=== PATIENT | female | born 1950 | race Caucasian/White ===

== ENCOUNTER 2021-05-11 05:29 | Day surgery (SDC) | payer MEDICARE, BC ==
[2021-05-03 17:05] LABS: BASOPHILS % (AUTO) 0.7 % (0-1); EOSINOPHILS # (AUTO) 0.2 X10'3 (0-0.9); EOSINOPHILS % (AUTO) 2.7 % (0-6); LYMPHOCYTES # (AUTO) 2.9 X10'3 (1.1-4.8); LYMPHOCYTES % (AUTO) 41.2 % (21-51); MEAN CORPUSCULAR HEMOGLOBIN 32.4 PG (27.0-31.0); MEAN CORPUSCULAR VOLUME 95.4 FL (78-98); MONOCYTES # (AUTO) 0.6 X10'3 (0-0.9); MONOCYTES % (AUTO) 8.1 % (2-12); NEUTROPHILS # (AUTO) 3.3 X10'3 (1.8-7.7); NEUTROPHILS % (AUTO) 47.3 % (42-75); PRE OP PLATELET COUNT 224 X10'3 (140-440); RED BLOOD COUNT 4.92 X10'6 (4.20-5.60); RED CELL DISTRIBUTION WIDTH 13.4 % (11.5-14.5)
[2021-05-03 17:40] LABS: ALBUMIN 3.8 G/DL (3.4-5.0); ALKALINE PHOSPHATASE 87 IU/L (46-116); BLOOD UREA NITROGEN 19 MG/DL (7-18); BUN/CREATININE RATIO 24.7 (6.6-38.0); CALCIUM 9.3 MG/DL (8.5-10.1); CHLORIDE 104 MMOL/L (99-107); CREATININE 0.77 MG/DL (0.40-0.90); PRE OP ALT 25 U/L (30-65); PRE OP ANION GAP 7 (8-16); PRE OP AST 26 U/L (10-37); PRE OP BILIRUB, TOTAL 0.2 MG/DL (0.0-1.0); PRE OP GLUCOSE 92 MG/DL (70-104); PRE OP POTASSIUM 4.4 MMOL/L (3.4-5.1); PRE OP SODIUM 140 MMOL/L (135-145); TOTAL CARBON DIOXIDE 29.4 MMOL/L (24-32); TOTAL PROTEIN 7.8 G/DL (6.4-8.2); eGFR 74 ML/MIN
[2021-05-11] VITALS (18 sets, daily range): BP systolic 80–119; BP diastolic 48–71
[~2021-05-11] VITALS: Ht 165.1 cm; Wt 86.8 kg
[~2021-05-11 05:29] MED LIST: AMBEREN; CELE-85 PO; CITA20TA28 PO; GABA-530 PO; GABA300C PO; HYDR-3972 PO; LANS30CA56 PO; LEVO75TA7 PO; MELA5TAB12 PO; MORP-92 PO; MULT-1085 PO; ringers solution, lacted 1,000 ML IV SCH
[2021-05-11] MEDS ORDERED: tranexamic acid inj. 1,000 MG in normal saline 100 ML IV ONE (05:30)
[2021-05-11] MEDS ORDERED: albuterol 2.5 MG/3 ML nebule NEB ONE (05:30)
[2021-05-11] MEDS ORDERED: vancomycin 1,500 MG in NS 300ml IV soln IV ONE (05:30)
[2021-05-11] MEDS ORDERED: clindamycin-Cleocin 900mg/D5W 50 ML IV ONE (05:30)
[2021-05-11] MEDS: famotidine 20mg tablet PO ONE ×2 (06:14→06:17)
[2021-05-11] MEDS ORDERED: cloNIDine hcl/PF 100mcg/ml inj ONE (06:46)
[2021-05-11] MEDS ORDERED: ketorolac trometh. 30mg/ml inj. ONE (06:46)
[2021-05-11] MEDS ORDERED: ROPIVAcaine 0.5% (5mg/ml) 30ml vial ONE ×2 (06:46→08:06)
[2021-05-11] MEDS ORDERED: tetracaine 1% (10mg/ml) pres. free inj. ONE (07:11)
[2021-05-11] MEDS ORDERED: MIDAZolam 1mg/ml 10ml vial ONE (07:15)
[2021-05-11] MEDS ORDERED: morphine /PF 1mg/ml 10ml inj. ONE (07:16)
[2021-05-11] MEDS ORDERED: fentaNYL/PF 50MCG/1 ML 2ML syringe ONE (07:16)
[2021-05-11] MEDS ORDERED: BUPIVAcaine/PF 7.5mg/ml (0.75%) 10ml vial ONE (07:20)
[2021-05-11] MEDS ORDERED: ePHEDrine 50MG/ML INJ. ONE (07:43)
[2021-05-11] MEDS ORDERED: dexamethasone sod phosphate 4mg/ml inj. ONE (08:07)
[2021-05-11] MEDS ORDERED: morphine 2 MG/ML inj. syringe IV PRN (08:15)
[2021-05-11] MEDS ORDERED: ringers solution, lacted 1,000 ML IV SCH (08:15)
[2021-05-11] MEDS ORDERED: fentaNYL/PF 50MCG/1 ML 2ML syringe IV PRN ×2 (08:15)
[2021-05-11] MEDS ORDERED: morphine 4 MG/ML inj SYRINge IV PRN (08:15)
[2021-05-11] MEDS ORDERED: hydrALAZINE 20mg/ml inj. IV PRN (08:15)
[2021-05-11] MEDS ORDERED: labetalol 20mg/4ml (5mg/ml) syringe IV PRN (08:15)
[2021-05-11] MEDS ORDERED: diphenhydrAMINE 50 mg/ml inj IV PRN (08:15)
[2021-05-11] MEDS ORDERED: ondansetron/PF 4mg/2ml inj IV PRN ×3 (08:15→10:15)
--- NOTE | 2021-05-11 10:06 | NUR ---
Received from OR via , accompanied by Anesthesiologist DR JESSICA and report given by Anesthesiolgist. AWAKENS TO VOICE. VITALS STABLE. DRESSING DI. ALIA PAIN. SENSATION JUST ABNOVE THE HIPS. HATHAWAY WITH CLEAR URINE.
[2021-05-11] MEDS ORDERED: diphenhydrAMINE 25mg capsule PO PRN ×2 (10:15)
[2021-05-11] MEDS ORDERED: oxyCODONE IR 5mg (immed. release) tablet PO PRN ×2 (10:15)
[2021-05-11] MEDS ORDERED: magnesium hydroxide 30ml (MOM) UD suspension PO PRN (10:15)
[2021-05-11] MEDS ORDERED: bisacodyl 10mg suppository rectal RC PRN (10:15)
[2021-05-11] MEDS ORDERED: acetaminophen 325mg tablet PO PRN (10:15)
[2021-05-11] MEDS ORDERED: Melatonin 3mg tablet PO PRN (10:25)
--- NOTE | 2021-05-11 11:12 | NUR ---
received report from kathie street in recovery
--- NOTE | 2021-05-11 11:16 | NUR ---
Report called to receiving nurse. Transferred via BED Belongings . Special Issues communicated to receiving nurse. AWAKE AND ORIENTED. VITALS STABLE. DRESSING DI. ALIA PAIN. TO ORTHO RM [id number] AT THIS TIME.
[2021-05-11] MEDS: clindamycin 600mg/D5W 50ml 50 ML IV SCH ×2 (13:52→20:45)
[2021-05-11] MEDS: HYDROmorphone 1 mg/ml syringe IV PRN (16:43)
--- NOTE | 2021-05-11 16:47 | NUR ---
earlier today pt brought in all of home medications for the intent of pharmacy to place their own label to distribute it to her, pharmacy called me back about and hour later letting me know that they are unable to complete the patient's request due to home medications not flagging things like 'reduced kidney function' therefore being a safety issue this safety issue has been explained to the patient and was told that her medications are being stored in pharmacy currently pt told me that she "will not take any of the hospital's medication" because she has "brought her own medication into the hospital" and that she had "already paid for her medication" and "refuses to pay for any medication that the hospital distributes to her" i asked her if she had spoke w/the doc about this issue w/her medication and patient answered the question with saying again that "she had already paid for her medication" and "refuses to take any pills that the hospital is going to distribute"
[2021-05-11] MEDS: aspirin 81mg tablet.DR PO SCH (17:06)
--- NOTE | 2021-05-11 18:18 | NUR ---
medications returned to daughter at bedside, daughter states " I will take the medication home with me and will not give her any of the medicines" there is concern since pt her home po dialudid at bedside at this time, pharmacy advised. pharmacy will closely monitor. pt states that she will decline all oral medications offered as she believes she will be charged for each medication Addendum: 05/11/21 at 1842 by Lady Arzola RN armature varnisher attempted to remedy situation by explaining to daughter and patient about her medicare and supplemental insurance that the patient has, after explanation, patient refuses to take all oral medications
--- NOTE | 2021-05-11 18:39 | NUR ---
attempted to notify the surgeon about patient declining all oral medications that have been described, unable to get through to surgeon to leave a message on surgeon cell phone
--- NOTE | 2021-05-11 18:43 | NUR ---
gave report to kathie davila
[2021-05-11] MEDS: potassium Cl 20mEq in NS 1,000 ML IV SCH ×2 (18:49→23:35)
--- NOTE | 2021-05-11 19:00 | NUR ---
daughter went home. had bag in her hand - unsure what contents were. no visible medications at bedside or in drawers. pt verbalized she would only take medications that were IV, no PO meds. pain controlled. VSS. will continue to assess.
[2021-05-11] MEDS ORDERED: vancomycin/NS 1 GM ADD-VANTAGE 250 ML IV SCH (20:00)
--- NOTE | 2021-05-11 20:30 | NUR ---
walked pt to doorway and back. full gait, tolerated well. "I'm doing great. I wonder if it's the surgery or the block?"
[2021-05-11] MEDS: gabapentin 100mg capsule PO SCH (21:00)
[2021-05-11] MEDS ORDERED: sennosides 8.6mg tablet PO SCH (21:00)
[2021-05-11] MEDS ORDERED: gabapentin 300mg capsule PO SCH (21:00)
--- NOTE | 2021-05-11 21:50 | NUR ---
offered PM meds of gabapentin, senekot etc. but pt declined oral medications. explained benefits, pt continues to decline. no pain, resting w/o distress. placed on oxygen earlier for sats 90% on RA. pt compliant with oxygen and continuous pulse ox. noted low/normal heart rate and blood pressure
[2021-05-12] MEDS: HYDROmorphone 1 mg/ml syringe IV PRN ×3 (01:49→09:29)
[2021-05-12 02:11] VITALS: BP 111/54
--- NOTE | 2021-05-12 04:00 | NUR ---
pt c/o pain - continues to refuse PO meds. IV dilaudid not due until 0545. will give when able. ice, elevation, rest, gatched bed supplied. pain behind knee "where it was before my surgery".
[2021-05-12 06:00] VITALS: BP 110/63
[2021-05-12] MEDS ORDERED: levoTHYROXINE 75mcg tablet PO SCH (07:00)
--- NOTE | 2021-05-12 07:20 | NUR ---
Pt continued to refuse all po meds even when informed of Hospital routine. Pt concerned of individuals charges and that she brought in meds from home but was told not to keep them at bedside. She said she will wait to take her meds when she goes home. Will inform MD when he makes rounds.
[2021-05-12] MEDS: aspirin 81mg tablet.DR PO SCH (07:30)
[2021-05-12] MEDS ORDERED: pantoprazole 40mg Tablet.DR PO SCH (07:30)
[2021-05-12] MEDS ORDERED: celeCOXIB 100mg capsule PO SCH (08:00)
[2021-05-12] MEDS ORDERED: citalopram 20mg tablet PO SCH (08:00)
[2021-05-12] MEDS: gabapentin 100mg capsule PO SCH (08:00)
[2021-05-12 10:00] VITALS: BP 133/59
[2021-05-12 10:04] LABS: BASOPHILS % (AUTO) 0.2 % (0-1); EOSINOPHILS % (AUTO) 0.4 % (0-6); HEMATOCRIT 39.9 % (35.0-45.0); HEMOGLOBIN 13.3 g/dl (12.0-16.0); LYMPHOCYTES # (AUTO) 1.5 X10'3 (1.1-4.8); LYMPHOCYTES % (AUTO) 12.7 % (21-51); MEAN CORPUSCULAR HGB CONC 33.3 g/dL (33.0-36.5); MEAN CORPUSCULAR VOLUME 95.9 FL (78-98); MEAN PLATELET VOLUME 7.3 FL (7.4-10.4); MONOCYTES # (AUTO) 1.4 X10'3 (0-0.9); MONOCYTES % (AUTO) 11.9 % (2-12); NEUTROPHILS # (AUTO) 8.7 X10'3 (1.8-7.7); NEUTROPHILS % (AUTO) 74.8 % (42-75); PLATELET COUNT 183 X10'3 (140-440); RED BLOOD COUNT 4.16 X10'6 (4.20-5.60); RED CELL DISTRIBUTION WIDTH 13.9 % (11.5-14.5); WHITE BLOOD COUNT 11.6 X10'3 (4.5-11.0)
[2021-05-12 10:15] LABS: ALANINE AMINOTRANSFERASE 25 U/L (12-78); ALBUMIN 3.3 G/DL (3.4-5.0); ALBUMIN/GLOBULIN RATIO 0.9 (1.1-1.5); ALKALINE PHOSPHATASE 61 IU/L (46-116); ANION GAP 6 (8-16); ASPARTATE AMINO TRANSFERASE 35 U/L (10-37); BILIRUBIN,TOTAL 0.5 MG/DL (0.1-1.0); BLOOD UREA NITROGEN 22 MG/DL (7-18); BUN/CREATININE RATIO 22.7 (6.6-38.0); CALCIUM 8.8 MG/DL (8.5-10.1); CHLORIDE 105 MMOL/L (99-107); CREATININE 0.97 MG/DL (0.40-0.90); GLUCOSE 86 MG/DL (70-104); POTASSIUM 4.8 MMOL/L (3.5-5.1); SODIUM 139 MMOL/L (135-145); TOTAL PROTEIN 6.8 G/DL (6.4-8.2); eGFR 57 ML/MIN
== END 2021-05-12 11:10 | disposition home or self-care (01) ==
LOC: PAS 05:29 → ORTHO 4S 11:29 → PAS 05-12 11:10
PROVIDERS: ATTEND Orthopaedic Surgery
DX: M17.12 Unilateral primary osteoarthritis, left knee (principal); Z20.822 Contact with and (suspected) exposure to COVID-19; G89.18 Other acute postprocedural pain; F17.210 Nicotine dependence, cigarettes, uncomplicated; M19.90 Unspecified osteoarthritis, unspecified site; K21.9 Gastro-esophageal reflux disease without esophagitis; E03.9 Hypothyroidism, unspecified; E66.9 Obesity, unspecified; Z68.31 Body mass index [BMI] 31.0-31.9, adult; Z85.828 Personal history of other malignant neoplasm of skin; Z88.0 Allergy status to penicillin; Z79.899 Other long term (current) drug therapy; Z90.49 Acquired absence of other specified parts of digestive tract; Z98.890 Other specified postprocedural states; Z90.710 Acquired absence of both cervix and uterus; Z87.442 Personal history of urinary calculi
CPT/HCPCS: 27447; 36415; 64447; 71046; 76942; 80053; 82948; 84443; 85025; 86885; 86900; 86901; 86920; 87081; 97116; 97162; 97530; C1713; C1758; C1776; J0735; J1100; J1170; J1885; J2250; J2270; J3010; J3370; J3480; J3490; J7040; J7120; U0003; U0005; A6455; A7000; A9272; G0378; J2795

== ENCOUNTER 2023-09-02 08:41 | Inpatient (IN) | payer MEDICARE, BC ==
[~2023-09-02] VITALS: Ht 162.6 cm; Wt 79.5 kg
[~2023-09-02 08:41] MED LIST changes: -AMBEREN; +CELE-127 PO; -CELE-85 PO; -HYDR-3972 PO; -MORP-92 PO; -MULT-1085 PO; -ringers solution, lacted 1,000 ML IV SCH
--- NOTE | 2023-09-02 08:48 | NUR ---
Alejandro correa in [facility] - 09/02/23 at 0912 by PREET cristal alcala.
--- NOTE | 2023-09-02 08:51 | NUR ---
pt triaged at bedside with her daughter. Pads placed on pt chest.
[2023-09-02] MEDS ORDERED: fentaNYL/PF 50MCG/1 ML 2ML syringe ONE (08:55)
[2023-09-02] MEDS ORDERED: iohexol 350 MG/ML 50ML vial IV ONE (08:55)
[2023-09-02] MEDS ORDERED: heparin 1,000unit/ml 10ml vial 10 ML ONE (08:55)
[2023-09-02] MEDS ORDERED: LIDOcaine 1% (10mg/ml)w/preservative inj. 20ml MDV ONE (08:55)
[2023-09-02] MEDS ORDERED: midazolam 1 mg/ML 2ml injection ONE (08:55)
[2023-09-02] MEDS ORDERED: iohexol 350MG/ML 100ml bottle IV ONE (08:56)
--- NOTE | 2023-09-02 08:56 | NUR ---
0856- 5,000 HEPARIN UNITS, DRIP STARTED 1,000UNITS. BY GERALDO AND PONCE OJEDA RN. 324MG ASPIRIN
--- NOTE | 2023-09-02 09:00 | NUR ---
PT TO FRONT END LOADER OPERATOR NOW WITH [facility]
--- NOTE | 2023-09-02 09:01 | NUR ---
MED LIST AND EKG WITH [facility] TO [employer]PLOYMENT INSTRUCTIONAL ASSOCIATE. PT DAUGHER TAKEN UP THERE. CONFIRMED WITH DR. BATEMAN THAT THEY WANT A STENT DESPITE DNR.
[2023-09-02] MEDS ORDERED: epiNEPHrine 1 mg/ml inj ONE (09:05)
[2023-09-02] MEDS ORDERED: phenylephrine 10mg/ml inj. -priapism dosing ONE ×2 (09:05→09:13)
[2023-09-02] MEDS ORDERED: atropine 0.1mg/ml 10ml syringe ONE (09:05)
[2023-09-02 09:07] LABS: BASOPHILS # (AUTO) 0.1 X10'3 (0-0.2); EOSINOPHILS # (AUTO) 0.2 X10'3 (0-0.9); EOSINOPHILS % (AUTO) 1.7 % (0-6); HEMATOCRIT 50.4 % (35.0-45.0); LYMPHOCYTES # (AUTO) 2.8 X10'3 (1.1-4.8); LYMPHOCYTES % (AUTO) 30.4 % (21-51); MEAN CORPUSCULAR HEMOGLOBIN 32.6 PG (27.0-31.0); MEAN CORPUSCULAR HGB CONC 33.8 g/dL (33.0-36.5); MEAN CORPUSCULAR VOLUME 96.4 FL (78-98); MEAN PLATELET VOLUME 7.2 FL (7.4-10.4); MONOCYTES # (AUTO) 0.8 X10'3 (0-0.9); MONOCYTES % (AUTO) 8.2 % (2-12); NEUTROPHILS # (AUTO) 5.5 X10'3 (1.8-7.7); NEUTROPHILS % (AUTO) 58.7 % (42-75); PLATELET COUNT 247 X10'3 (140-440); RED BLOOD COUNT 5.22 X10'6 (4.20-5.60); RED CELL DISTRIBUTION WIDTH 14.1 % (11.5-14.5); WHITE BLOOD COUNT 9.3 X10'3 (4.5-11.0)
[2023-09-02 09:17] LABS: ALANINE AMINOTRANSFERASE 22 U/L (12-78); ALBUMIN 3.8 G/DL (3.4-5.0); ALBUMIN/GLOBULIN RATIO 0.9 (1.1-1.5); ALKALINE PHOSPHATASE 87 IU/L (46-116); ANION GAP 6 (8-16); ASPARTATE AMINO TRANSFERASE 27 U/L (10-37); BILIRUBIN,TOTAL 0.6 MG/DL (0.1-1.0); BLOOD UREA NITROGEN 19 MG/DL (7-18); CALCIUM 10.1 MG/DL (8.5-10.1); CHLORIDE 103 MMOL/L (99-107); CREATININE 0.95 MG/DL (0.40-0.90); GLUCOSE 162 MG/DL (70-104); POTASSIUM 4.3 MMOL/L (3.5-5.1); SODIUM 140 MMOL/L (135-145); TOTAL PROTEIN 7.9 G/DL (6.4-8.2); eCRCL 46 ML/MIN; eGFR 58 ML/MIN
[2023-09-02 09:24] LABS: PRO BRAIN NATRIURETIC PEPTIDE 241 PG/ML (0-125)
[2023-09-02] MEDS ORDERED: ticagrelor 90mg tablet ONE (09:56)
[2023-09-02 10:00] VITALS: BP 97/39; PULSE 59; RESP 16; TEMP 97.4; O2SAT 97
[2023-09-02] MEDS ORDERED: proCHLORperazine 10 MG/2 ml inj IV PRN (10:50)
[2023-09-02] MEDS ORDERED: normal saline 1000ml 1,000 ML IV SCH (10:50)
[2023-09-02] MEDS ORDERED: HYDROcodone/acetaminophen 5mg/325mg tablet PO PRN (10:50)
[2023-09-02] MEDS ORDERED: HYDROcodone/acetaminophen 10/325mg tab PO PRN (10:50)
[2023-09-02] MEDS ORDERED: ondansetron/PF 4mg/2ml inj IV PRN (10:50)
[2023-09-02 11:00] VITALS: BP 94/48; PULSE 52; RESP 14; TEMP 97.2; O2SAT 98
[2023-09-02] MEDS ORDERED: gabapentin 300mg capsule PO ONE (17:55)
[2023-09-02 18:00] VITALS: BP 115/43; PULSE 47; RESP 15; TEMP 97.5; O2SAT 98
--- NOTE | 2023-09-02 18:31 | NUR ---
Problems reprioritized. Patient report given, questions answered & plan of care reviewed with Marleen HOFFMAN, patient stable at transfer of care..
[2023-09-02 20:00] VITALS: RESP 15; O2SAT 98
--- NOTE | 2023-09-02 20:00 | NUR ---
DNR bracelet placed on pt. Olga HOFFMAN witnessed.
[2023-09-02] MEDS ORDERED: gabapentin 100mg capsule PO SCH (21:00)
[2023-09-02] MEDS: gabapentin 300mg capsule PO SCH (21:01)
[2023-09-02 22:00] VITALS: BP 105/83; PULSE 48; RESP 18; TEMP 99; O2SAT 95
[2023-09-03 02:00] VITALS: BP 119/62; PULSE 53; RESP 18; TEMP 99; O2SAT 97
--- NOTE | 2023-09-03 04:46 | NUR ---
Page Sent PAGER ID: [phone] MESSAGE: [id number] Lo Du Pt/pt family is wondering if we can put an order in for her Celecoxib 20mg PO daily that she takes at home (takes it in the AM). It is in her med rec. Please advise, thank you! [phone]
[2023-09-03 06:00] VITALS: BP 113/57; PULSE 48; RESP 13; TEMP 98.2; O2SAT 94
--- NOTE | 2023-09-03 06:00 | NUR ---
Patient in room PCU 3018. I have received report from Marleen HOFFMAN and had the opportunity to ask questions and assume patient care.
--- NOTE | 2023-09-03 06:28 | NUR ---
Problems reprioritized. Patient report given, questions answered & plan of care reviewed with Tatyana HOFFMAN.
[2023-09-03 06:41] LABS: BASOPHILS % (AUTO) 0.6 % (0-1); EOSINOPHILS # (AUTO) 0.1 X10'3 (0-0.9); EOSINOPHILS % (AUTO) 1.8 % (0-6); HEMATOCRIT 44.4 % (35.0-45.0); LYMPHOCYTES # (AUTO) 2.3 X10'3 (1.1-4.8); LYMPHOCYTES % (AUTO) 31.9 % (21-51); MEAN CORPUSCULAR HEMOGLOBIN 32.3 PG (27.0-31.0); MEAN CORPUSCULAR HGB CONC 33.6 g/dL (33.0-36.5); MEAN CORPUSCULAR VOLUME 95.9 FL (78-98); MONOCYTES # (AUTO) 0.7 X10'3 (0-0.9); MONOCYTES % (AUTO) 9.6 % (2-12); NEUTROPHILS # (AUTO) 4.1 X10'3 (1.8-7.7); NEUTROPHILS % (AUTO) 56.1 % (42-75); PLATELET COUNT 191 X10'3 (140-440); RED BLOOD COUNT 4.63 X10'6 (4.20-5.60); RED CELL DISTRIBUTION WIDTH 14.4 % (11.5-14.5); WHITE BLOOD COUNT 7.3 X10'3 (4.5-11.0)
[2023-09-03 06:54] LABS: HEMOGLOBIN A1C 5.2 % (4.5-6.2)
[2023-09-03] MEDS: gabapentin 300mg capsule PO SCH (07:23)
[2023-09-03 07:24] LABS: ANION GAP 8 (8-16); BLOOD UREA NITROGEN 15 MG/DL (7-18); BUN/CREATININE RATIO 19.7 (10.0-20.0); CALCIUM 9.7 MG/DL (8.5-10.1); CHLORIDE 109 MMOL/L (99-107); CHOL/HDL RATIO 5.4 (0.00-4.99); CHOLESTEROL 195 MG/DL (0-200); CREATININE 0.76 MG/DL (0.40-0.90); GLUCOSE 83 MG/DL (70-104); HDL CHOLESTEROL 36 MG/DL (35-60); LDL CHOLESTEROL 114 MG/DL (50-100); MAGNESIUM 2.1 MG/DL (1.5-2.4); POTASSIUM 3.7 MMOL/L (3.5-5.1); SODIUM 143 MMOL/L (135-145); TOTAL CARBON DIOXIDE 25.6 MMOL/L (24-32); TRIGLYCERIDES 171 MG/DL (20-135); eCRCL 58 ML/MIN; eGFR 75 ML/MIN
[2023-09-03] MEDS ORDERED: pantoprazole 40mg Tablet.DR PO SCH (07:30)
--- NOTE | 2023-09-03 07:36 | NUR ---
Paged Dr. Coello regarding the patients critical troponin. They had a STEMI and stent placed so the troponin being elevated is expected. PAGER ID: [phone] MESSAGE: [email or web address]. Pts troponin is 3570. They are post STEMI and stent. [facility] 5064
[2023-09-03 08:00] VITALS: RESP 13; O2SAT 94
[2023-09-03] MEDS ORDERED: levoTHYROXINE 75mcg tablet PO SCH (08:00)
[2023-09-03] MEDS ORDERED: aspirin 81mg, enteric-coated 1 TAB TABLET.DR PO SCH (08:00)
[2023-09-03] MEDS ORDERED: clopidogrel 75mg tablet PO SCH (08:00)
--- NOTE | 2023-09-03 10:02 | NUR ---
I paged Dr. Coello regarding some written orders from Dr. Ashby that Dr Coello needs to add to the discharge. The patient needs to picker / packer their Plavix before they can go home. PAGER ID: [phone] MESSAGE: [phone] Solares. Dr Ashby has a few written orders for meds that need to be sent to the patients pharmacy. They have plavix that needs to be picked up before they discharge. [facility] 0206
[2023-09-03] MEDS ORDERED: ASPI-1071 PO (10:21)
[2023-09-03] MEDS ORDERED: CLOP75TA34 PO (10:21)
[2023-09-03] MEDS ORDERED: gabapentin capsule PO (10:22)
--- NOTE | 2023-09-03 11:59 | NUR ---
Pt stable for discharge per Dr. Coello. All discharge instructions reviewed with patient and all questions answered, pt verbalized understanding. New medications e-scripted to [facility] and daughter picked up plavix prior to discharge. PIV discontinued, cannula intact. Tele discontinued. All belongings collected and sent with patient. Wheeled to lobby via nursing staff and picked up by daughter.
== END 2023-09-03 11:42 | disposition home or self-care (01) | DRG 322 ==
LOC: ER 08:42 → PCU 3S 09:55 → UNDOADMIN 09:55
PROVIDERS: ADMIT Internal Medicine Cardiovascular Disease; ATTEND Internal Medicine Cardiovascular Disease
PROC: 027035Z Dilation of Coronary Artery, One Artery with Two Drug-eluting Intraluminal Devices, Percutaneous Approach (ICD-10-PCS; principal; 2023-09-02)
PROC: 4A023N7 Measurement of Cardiac Sampling and Pressure, Left Heart, Percutaneous Approach (ICD-10-PCS; 2023-09-02)
PROC: B2111ZZ Fluoroscopy of Multiple Coronary Arteries using Low Osmolar Contrast (ICD-10-PCS; 2023-09-02)
PROC: B2151ZZ Fluoroscopy of Left Heart using Low Osmolar Contrast (ICD-10-PCS; 2023-09-02)
DX: I21.3 ST elevation (STEMI) myocardial infarction of unspecified site (principal); E03.9 Hypothyroidism, unspecified; G89.29 Other chronic pain; M54.9 Dorsalgia, unspecified; Z66 Do not resuscitate; F17.210 Nicotine dependence, cigarettes, uncomplicated; Z88.0 Allergy status to penicillin; Z79.899 Other long term (current) drug therapy; Z90.710 Acquired absence of both cervix and uterus
CPT/HCPCS: 93458; 99285; C9606; 36415; 80048; 80053; 80061; 83036; 83735; 83880; 84484; 85025; A6212; A6258; C1725; C1751; C1760; C1769; C1874; C1894; G0378; J0171; J0461; J1644; J2250; J2370; J3010; J3490; J7030; Q9967

== ENCOUNTER 2025-02-10 19:04 | Inpatient (IN) | payer MEDICARE, BC ==
[~2025-02-10] VITALS: Ht 167.6 cm; Wt 72.7 kg
[~2025-02-10 19:04] MED LIST changes: +ASPI-1071 PO; -CELE-127 PO; +CLOP75TA34 PO; -GABA-530 PO; -GABA300C PO; +gabapentin capsule PO
[2025-02-10 19:41] LABS: BASOPHILS % (AUTO) 0.5 % (0-1); EOSINOPHILS % (AUTO) 0.2 % (0-6); HEMOGLOBIN 14.8 g/dl (12.0-16.0); LYMPHOCYTES # (AUTO) 1.7 X10'3 (1.1-4.8); LYMPHOCYTES % (AUTO) 33.2 % (21-51); MEAN CORPUSCULAR HEMOGLOBIN 31.1 PG (27.0-31.0); MEAN CORPUSCULAR HGB CONC 32.9 g/dL (33.0-36.5); MEAN CORPUSCULAR VOLUME 94.6 FL (78-98); MEAN PLATELET VOLUME 7.2 FL (7.4-10.4); MONOCYTES # (AUTO) 0.1 X10'3 (0-0.9); MONOCYTES % (AUTO) 2.4 % (2-12); NEUTROPHILS # (AUTO) 3.2 X10'3 (1.8-7.7); NEUTROPHILS % (AUTO) 63.7 % (42-75); PLATELET COUNT 428 X10'3 (140-440); RED BLOOD COUNT 4.75 X10'6 (4.20-5.60); RED CELL DISTRIBUTION WIDTH 16.4 % (11.5-14.5)
[2025-02-10] MEDS: normal saline 1000ml 1,000 ML IV ONE ×2 (19:46→22:45)
[2025-02-10] MEDS: acetaminophen 1,000mg/100ml IV 100 ML IV ONE (19:47)
[2025-02-10] MEDS: ondansetron/PF 4mg/2ml inj IV ONE (19:47)
[2025-02-10 20:26] LABS: ALANINE AMINOTRANSFERASE 36 U/L (12-78); ALBUMIN 2.3 G/DL (3.4-5.0); ALBUMIN/GLOBULIN RATIO 0.6 (1.1-1.5); ALKALINE PHOSPHATASE 406 IU/L (46-116); ASPARTATE AMINO TRANSFERASE 45 U/L (10-37); BILIRUBIN,TOTAL 0.9 MG/DL (0.1-1.0); BLOOD UREA NITROGEN 12 MG/DL (7-18); CALCIUM 8.8 MG/DL (8.5-10.1); GLUCOSE 120 MG/DL (70-104); LIPASE 16 U/L (16-77); MAGNESIUM 1.4 MG/DL (1.5-2.4); SODIUM 141 MMOL/L (135-145); TOTAL CARBON DIOXIDE 24.9 MMOL/L (24-32); TOTAL PROTEIN 6.2 G/DL (6.4-8.2); eCRCL 59 ML/MIN; eGFR 70 ML/MIN
[2025-02-10 20:33] LABS: ANION GAP 13 (8-16); CHLORIDE 103 MMOL/L (99-107)
[2025-02-10 20:37] LABS: POTASSIUM 2.9 MMOL/L (3.5-5.1)
[2025-02-10] MEDS ORDERED: POTASSIUM BICARB 20meq eff tab 20 MEQ TABLET.EFF PO ONE (21:00)
[2025-02-10] MEDS ORDERED: iohexol 350MG/ML 100ml bottle IV ONE (21:11)
[2025-02-10] MEDS: mag hydrox/Alum hydrox/simeth 30ml oral suspension PO ONE (21:13)
[2025-02-10] MEDS: POTASSIUM CHLORIDE 20 MEQ/15 ML oral solution PO ONE (21:13)
[2025-02-10] MEDS: LIDOcaine 2% Viscous 15ml cup MM ONE (21:13)
[2025-02-10 22:29] VITALS: TEMP 98.2
[2025-02-10] MEDS: CefTRIAXone/D5W-Rocephin 1gm 50 ML IV ONE (23:06)
[2025-02-11 00:49] LABS: BASOPHILS % (AUTO) 0.2 % (0-1); EOSINOPHILS % (AUTO) 0.1 % (0-6); HEMATOCRIT 36.4 % (35.0-45.0); HEMOGLOBIN 12.2 g/dl (12.0-16.0); LYMPHOCYTES # (AUTO) 0.6 X10'3 (1.1-4.8); LYMPHOCYTES % (AUTO) 17.9 % (21-51); MEAN CORPUSCULAR HEMOGLOBIN 31.5 PG (27.0-31.0); MEAN CORPUSCULAR HGB CONC 33.5 g/dL (33.0-36.5); MEAN CORPUSCULAR VOLUME 93.8 FL (78-98); MEAN PLATELET VOLUME 6.8 FL (7.4-10.4); MONOCYTES # (AUTO) 0.5 X10'3 (0-0.9); NEUTROPHILS # (AUTO) 2.3 X10'3 (1.8-7.7); NEUTROPHILS % (AUTO) 67.8 % (42-75); PLATELET COUNT 289 X10'3 (140-440); RED BLOOD COUNT 3.87 X10'6 (4.20-5.60); RED CELL DISTRIBUTION WIDTH 16.4 % (11.5-14.5); WHITE BLOOD COUNT 3.3 X10'3 (4.5-11.0)
[2025-02-11] MEDS: famotidine/PF 10 mg/ml inj IV ONE (01:50)
[2025-02-11] MEDS: dexamethasone inj 6 MG in dextrose 5%-water 100 ML IV ONE (01:50)
[2025-02-11] MEDS: normal saline 1000ml 1,000 ML IV ONE (01:50)
[2025-02-11] MEDS: midodrine 5mg tablet PO ONE (02:34)
[2025-02-11] MEDS: potassium Cl 40MEQ/1/2NS 520ml 520 ML IV SCH (02:37)
[2025-02-11 03:54] LABS: BILIRUBIN,URINE SMALL (Neg); CLARITY,URINE SLIGHTLY CLOUDY (Clear); COLOR,URINE YELLOW (Yellow); GLUCOSE, URINE NEGATIVE (Neg); KETONES,URINE TRACE mg/dl (Neg); LEUKOCYTE ESTERASE ,URINE NEGATIVE (Neg); NITRITES, URINE NEGATIVE (Neg); OCCULT BLOOD,URINE NEGATIVE (Neg); PH,URINE 5.5 (4.8-8.0); PROTEIN,URINE TRACE mg/dl (Neg)
[2025-02-11 03:56] LABS: UA COLLECTION TYPE STRAIGHT CATH
[2025-02-11] MEDS ORDERED: potassium Cl 40MEQ/1/2NS 520ml 520 ML IV SCH (04:00)
[2025-02-11 04:18] LABS: BACTERIA,URINE FEW /HPF (Neg); MUCUS STRANDS FEW /LPF (Neg); RBC,URINE NONE SEEN /HPF (0-2); SQUAMOUS EPITHELIAL CELL,UR FEW /LPF (FEW); WBC,URINE 0-4 /HPF (0-4)
[2025-02-11] MEDS: albumin (human) 25% 100 ML IV solution IV ONE (04:28)
[2025-02-11] MEDS: ondansetron/PF 4mg/2ml inj IV ONE (07:20)
[2025-02-11] MEDS: LIDOcaine 2% Viscous 15ml cup MM ONE (07:27)
[2025-02-11] MEDS: azithromycin/NS 500mg/250ml 250 ML IV ONE (07:27)
[2025-02-11] MEDS: sucralfate 1 gm tablet PO ONE (07:27)
[2025-02-11 09:43] LABS: ALANINE AMINOTRANSFERASE 21 U/L (12-78); ALBUMIN/GLOBULIN RATIO 0.8 (1.1-1.5); ALKALINE PHOSPHATASE 191 IU/L (46-116); ASPARTATE AMINO TRANSFERASE 35 U/L (10-37); BILIRUBIN,TOTAL 0.8 MG/DL (0.1-1.0); BLOOD UREA NITROGEN 14 MG/DL (7-18); BUN/CREATININE RATIO 13.9 (10.0-20.0); CALCIUM 7.5 MG/DL (8.5-10.1); CREATININE 1.01 MG/DL (0.40-0.90); GLUCOSE 103 MG/DL (70-104); POTASSIUM 4.4 MMOL/L (3.5-5.1); SODIUM 141 MMOL/L (135-145); TOTAL CARBON DIOXIDE 24.8 MMOL/L (24-32); TOTAL PROTEIN 4.6 G/DL (6.4-8.2); eCRCL 46 ML/MIN; eGFR 54 ML/MIN
[2025-02-11 10:06] LABS: ANION GAP 8 (8-16); CHLORIDE 108 MMOL/L (99-107)
[2025-02-11] MEDS: ringers solution, lacted 1,000 ML IV ONE (10:30)
[2025-02-11] MEDS ORDERED: APIX5TAB3 PO (10:41)
[2025-02-11] MEDS ORDERED: ASPI-1265 PO (10:41)
[2025-02-11] MEDS ORDERED: CELE-389 PO (10:44)
[2025-02-11] MEDS ORDERED: GABA-1405 PO (10:44)
[2025-02-11] MEDS: ondansetron/PF 4mg/2ml inj IV PRN (13:50)
[2025-02-11] MEDS ORDERED: ondansetron/PF 4mg/2ml inj IV PRN (15:00)
[2025-02-11] MEDS: metoclopramide 5 mg/ml inj IV PRN (16:08)
[2025-02-11 16:11] VITALS: BP 74/52
[2025-02-11] MEDS: scopolamine 1MG/72H patch 1 PATCH PATCH.TD.3 TD SCH (16:21)
[2025-02-11] MEDS ORDERED: morphine 10mg/0.5ml (conc. morphine) oral syringe PO PRN (17:15)
[2025-02-11] MEDS ORDERED: diazepam inj 5 MG/ML inj. IV PRN (17:15)
[2025-02-11] MEDS ORDERED: acetaminophen 325mg tablet PO PRN (17:15)
[2025-02-11] MEDS: morphine 10mg/0.5ml (conc. morphine) oral syringe PO PRN (18:17)
[2025-02-11] MEDS: morphine 10mg/ml inj. IV PRN (19:23)
[2025-02-11] MEDS: sennosides/docusate sodium tablet PO SCH (20:00)
[2025-02-11] MEDS: docusate sod 100mg capsule PO SCH (20:00)
[2025-02-11 23:30] VITALS: RESP 9
[2025-02-11 23:45] VITALS: PULSE 94; RESP 9; O2SAT 77
[2025-02-12 03:57] VITALS: PULSE 96
[2025-02-12 08:00] VITALS: PULSE 62; RESP 14; RESP 20
[2025-02-12 09:00] VITALS: PULSE 98; RESP 13
[2025-02-12 09:29] VITALS: RESP 14
[2025-02-12] MEDS: diazepam inj 5 MG/ML inj. IV PRN (09:51)
== END 2025-02-12 14:10 | DRG 871 ==
LOC: ER 19:04 → ED HOLD 02-11 07:36 → EDBEDREQ 02-11 20:19 → EDBEDREQSVC 02-11 20:34 → ORTHO 4S 02-11 23:24
PROVIDERS: ADMIT Family Medicine; ATTEND Family Medicine
PROC: B4201ZZ Computerized Tomography (CT Scan) of Abdominal Aorta using Low Osmolar Contrast (ICD-10-PCS; principal; 2025-02-10)
PROC: B4241ZZ Computerized Tomography (CT Scan) of Superior Mesenteric Artery using Low Osmolar Contrast (ICD-10-PCS; 2025-02-10)
PROC: B4281ZZ Computerized Tomography (CT Scan) of Bilateral Renal Arteries using Low Osmolar Contrast (ICD-10-PCS; 2025-02-10)
PROC: B42C1ZZ Computerized Tomography (CT Scan) of Pelvic Arteries using Low Osmolar Contrast (ICD-10-PCS; 2025-02-10)
PROC: B42H1ZZ Computerized Tomography (CT Scan) of Bilateral Lower Extremity Arteries using Low Osmolar Contrast (ICD-10-PCS; 2025-02-10)
PROC: B4211ZZ Computerized Tomography (CT Scan) of Celiac Artery using Low Osmolar Contrast (ICD-10-PCS; 2025-02-10)
DX: A41.9 Sepsis, unspecified organism (principal); G93.41 Metabolic encephalopathy; R65.21 Severe sepsis with septic shock; E87.20 Acidosis, unspecified; E46 Unspecified protein-calorie malnutrition; C34.90 Malignant neoplasm of unspecified part of unspecified bronchus or lung; K29.00 Acute gastritis without bleeding; Z20.822 Contact with and (suspected) exposure to COVID-19; R09.02 Hypoxemia; E03.9 Hypothyroidism, unspecified; R91.8 Other nonspecific abnormal finding of lung field; G62.9 Polyneuropathy, unspecified; K21.9 Gastro-esophageal reflux disease without esophagitis; K74.60 Unspecified cirrhosis of liver; Z66 Do not resuscitate; F17.210 Nicotine dependence, cigarettes, uncomplicated; F41.9 Anxiety disorder, unspecified; I46.9 Cardiac arrest, cause unspecified; Z88.0 Allergy status to penicillin; Z90.49 Acquired absence of other specified parts of digestive tract; Z51.5 Encounter for palliative care; Z83.3 Family history of diabetes mellitus; Z86.711 Personal history of pulmonary embolism; Z68.25 Body mass index [BMI] 25.0-25.9, adult
CPT/HCPCS: 36415; 71045; 74174; 74176; 76700; 80053; 81001; 83605; 83690; 83735; 84145; 84484; 85025; 87502; 87503; 87811; 93005; 96365; 96367; 96375; 99285; A4615; G0378; J0131; J0456; J0696; J1100; J2274; J2405; J2765; J3360; J3480; J3490; J7030; J7060; J7120; P9047; Q9967